=== PATIENT | female | born 1980 | race Caucasian/White ===

== ENCOUNTER 2016-12-22 18:04 | Emergency (ER) | payer BC ==
--- NOTE | 2016-12-22 18:31 | EDM.PDOC ---
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 Her last sexual intercourse was , 2 days ago. She said that initially it was small amounts and brown in color only when she wiped and today it looked more red and she thought she saw a few blood clots. She has used a light pad only for this bleeding and has not had any heavy bleeding. She has no lower abdominal cramping no nausea no vomiting no flank pain and no urinary complaints. She does not recall if she ever received Rogam with her prior pregnancies. The patient said she had a bedside ultrasound done by the nurse lumber sticker which documented a live IUP 4 weeks ago and she is approximately 10 weeks by that estimation. The patient has been eating and drinking normally. The patient states she is concerned because she did not have any heavy bleeding with her one miscarriage. Review of systems: As per history of present illness and below otherwise all systems reviewed and negative. Past medical history: As per history of present illness and as reviewed below otherwise noncontributory. Surgical history: As per history of present illness and as reviewed below otherwise noncontributory. Social history: No reported history of drug or alcohol abuse. Family history: As per history of present illness and as reviewed below otherwise noncontributory. Physical exam: General: Well-developed well-nourished female who is nontoxic and speaking in full sentences. Vital signs were noted by me. HEENT: Atraumatic, normocephalic, negative for conjunctival pallor or scleral icterus, mucous membranes moist, throat clear, neck supple, nontender, trachea midline. Lungs: Clear to auscultation, breath sounds equal bilaterally, chest nontender. Heart: S1S2, regular rate and rhythm no overt murmurs Abdomen: Soft, nondistended, nontender. Negative for masses or hepatosplenomegaly. Negative for costovertebral tenderness. Pelvis: Stable nontender. Genitourinary: There is a very scant amount of dark colored red mucus in the vault, the uterus is appropriate for age proximal leg tended 12 weeks, there is no adnexal tenderness or masses and the cervix is closed. Rectal: Deferred. Extremities: Atraumatic, negative for cords or calf pain. Neurovascular unremarkable. Neuro: Awake, alert, oriented. Cranial nerves II through XII unremarkable. Cerebellum unremarkable. Motor and sensory unremarkable throughout. Exam nonfocal. Diagnostics: CBC UA, urine culture if indicated, serum quantitative hCG, ABO Rh, pelvic ultrasound Therapeutics: 1900: Case was endorsed to Dr. Maya to follow-up on all the lab results as well as the pelvic ultrasound. He will disposition the patient pending those results Impression: Threatened first trimester Definitive disposition and diagnosis as appropriate pending reevaluation and review of above. - Related Data Allergies Allergy/AdvReac Type Severity Reaction Status Date / Time amoxicillin Allergy Hives Verified 12/22/16 18:21 clindamycin Allergy Hives Verified 12/22/16 18:21 Home Meds: Home Meds Levonorgestrel-Ethin Estradiol [Orsythia-28 Tablet] 1 tab PO DAILY 12/01/15 [ History] Past Medical History - Past Health History Medical/Surgical History: Denies Medical/Surgical History Other HEENT History: sore throats, tonsillolith, pharyngitis Cardiovascular History: Reports: None Respiratory History: Reports: None Gastrointestinal History: Reports: None Genitourinary History: Reports: None 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: Other OB/BYN History: 10 weeks gestation Musculoskeletal History: Reports: None Neurological History: Reports: Migraines Psychiatric History: Reports: None Endocrine/Metabolic History: Reports: None Hematologic History: Reports: None Immunologic History: Reports: None Oncologic (Cancer) History: Reports: None Dermatologic History: Reports: None - Past Surgical History Head Surgeries/Procedures: Reports: None GI Surgical History: Reports: Appendectomy Social & Family History - Family History Family Medical History: Noncontributory - Tobacco Use Smoking Status *Q: Never Smoker Second Hand Smoke Exposure: No - Caffeine Use Caffeine Use: Reports: None - Recreational Drug Use Recreational Drug Use: No Drug Use in Last 12 Months: No ED ROS GENERAL - Review of Systems Review Of Systems: ROS reveals no pertinent complaints other than HPI. ED EXAM, GENERAL - Physical Exam Exam: See Below (See dictation) Course - Vital Signs Last Recorded V/S: Last Vital Signs Temp 36.6 C 12/22/16 18:15 Pulse 86 12/22/16 18:15 Resp 18 12/22/16 18:15 BP 113/73 12/22/16 18:15 Pulse Ox - Orders/Labs/Meds Orders: Active Orders 24 hr Category Date Time Status OB 1st Tri Sgl 1st Gest [US] Stat Exams 12/22/16 18:26 Ordered Labs: Laboratory Tests 12/22/16 12/22/16 12/22/16 Range/Units 18:33 18:33 18:33 WBC 6.68 (4.0-11.0) K/uL RBC 4.00 L (4.30-5.90) M/uL Hgb 12.4 (12.0-16.0) g/dL Hct 37.4 (36.0-46.0) % MCV 93.5 (80.0-98.0) fL MCH 31.0 (27.0-32.0) pg MCHC 33.2 (31.0-37.0) g/dL RDW Std Deviation 46.7 (28.0-62.0) fl RDW Coeff of Carlos Manuel 14 (11.0-15.0) % Plt Count 274 (150-400) K/uL MPV 10.50 (7.40-12.00) fL Neut % (Auto) 51.7 (48.0-80.0) % Lymph % (Auto) 37.1 (16.0-40.0) % [place] % (Auto) 9.0 (0.0-15.0) % Eos % (Auto) 1.9 (0.0-7.0) % Baso % (Auto) 0.3 (0.0-1.5) % Neut # (Auto) 3.5 (1.4-5.7) K/uL Lymph # (Auto) 2.5 H (0.6-2.4) K/uL [place] # (Auto) 0.6 (0.0-0.8) K/uL Eos # (Auto) 0.1 (0.0-0.7) K/uL Baso # (Auto) 0.0 (0.0-0.1) K/uL Nucleated RBC % 0.0 /100WBC Nucleated RBCs # 0 K/uL HCG, Quant 6717.9 mIU/mL Urine Color Urine Appearance Urine pH (5.0-8.0) Ur Specific [place] (1.001-1.035) Urine Protein (NEGATIVE) mg/dL Urine Glucose (UA) (NEGATIVE) mg/dL Urine Ketones (NEGATIVE) mg/dL Urine Occult Blood (NEGATIVE) Urine Nitrite (NEGATIVE) Urine Bilirubin (NEGATIVE) Urine Urobilinogen (<2.0) EU/dL Ur Leukocyte Esterase (NEGATIVE) Urine RBC (0-2/HPF) Urine WBC (0-5/HPF) Ur Epithelial Cells (NONE-FEW) Urine Bacteria (NEGATIVE) Urine Mucus (NONE-MOD) Blood Type O POSITIVE 12/22/16 Range/Units 18:40 WBC (4.0-11.0) K/uL RBC (4.30-5.90) M/uL Hgb (12.0-16.0) g/dL Hct (36.0-46.0) % MCV (80.0-98.0) fL MCH (27.0-32.0) pg MCHC (31.0-37.0) g/dL RDW Std Deviation (28.0-62.0) fl RDW Coeff of Carlos Manuel (11.0-15.0) % Plt Count (150-400) K/uL MPV (7.40-12.00) fL Neut % (Auto) (48.0-80.0) % Lymph % (Auto) (16.0-40.0) % [place] % (Auto) (0.0-15.0) % Eos % (Auto) (0.0-7.0) % Baso % (Auto) (0.0-1.5) % Neut # (Auto) (1.4-5.7) K/uL Lymph # (Auto) (0.6-2.4) K/uL [place] # (Auto) (0.0-0.8) K/uL Eos # (Auto) (0.0-0.7) K/uL Baso # (Auto) (0.0-0.1) K/uL Nucleated RBC % /100WBC Nucleated RBCs # K/uL HCG, Quant mIU/mL Urine Color YELLOW Urine Appearance HAZY Urine pH 6.5 (5.0-8.0) Ur Specific [place] 1.020 (1.001-1.035) Urine Protein NEGATIVE (NEGATIVE) mg/dL Urine Glucose (UA) NEGATIVE (NEGATIVE) mg/dL Urine Ketones NEGATIVE (NEGATIVE) mg/dL Urine Occult Blood LARGE H (NEGATIVE) Urine Nitrite NEGATIVE (NEGATIVE) Urine Bilirubin NEGATIVE (NEGATIVE) Urine Urobilinogen 0.2 (<2.0) EU/dL Ur Leukocyte Esterase TRACE (NEGATIVE) Urine RBC 8-12 (0-2/HPF) Urine WBC 1-4 (0-5/HPF) Ur Epithelial Cells MODERATE (NONE-FEW) Urine Bacteria FEW (NEGATIVE) Urine Mucus LIGHT (NONE-MOD) Blood Type Departure - Departure Disposition: Home, Self-Care 01 Condition: Good Clinical Impression: Inevitable complete miscarriage without complication - Discharge Information Referrals: Alejandra Lucas CNM [Primary Care Provider] - Forms: ED Department Discharge Additional Instructions: The following information is given to patients seen in the emergency department who are being discharged to home. This information is to outline your options for follow-up care. We provide all patients seen in our emergency department with a follow-up referral. The need for follow-up, as well as the timing and circumstances, are variable depending upon the specifics of your emergency department visit. If you don't have a primary care physician on staff, we will provide you with a referral. We always advise you to contact your personal physician following an emergency department visit to inform them of the circumstance of the visit and for follow-up with them and/or the need for any referrals to a consulting specialist. The emergency department will also refer you to a specialist when appropriate. This referral assures that you have the opportunity for followup care with a specialist. All of these measure are taken in an effort to provide you with optimal care, which includes your followup. Under all circumstances we always encourage you to contact your private physician who remains a resource for coordinating your care. When calling for followup care, please make the office aware that this follow-up is from your recent emergency room visit. If for any reason you are refused follow-up, please contact the [facility] emergency department at and ask to speak to the emergency department charge nurse. [facility] [address] [place] [address] No heart activity was visualized on your ultrasound. You're having a miscarriage. Rest and drink plenty of fluids. Observe pelvic rest. Follow-up with Ms. Alejandra Lucas and Dr. cartagena on Saturday. Return immediately for uncontrolled bleeding or severe pain. He can take Motrin and Tylenol as needed for discomfort. Bleeding passing some tissue is normal and typical in the setting of miscarriage is only concerned if the bleeding becomes unstable or very large volume. <Rony Maya - Last Filed: 12/22/16 20:15> ED HPI GENERAL MEDICAL PROBLEM - History of Present Illness INITIAL COMMENTS - FREE TEXT/NARRATIVE: SUNG Elliott attending note Dr. Rony Julien by me in 1900 after full workup initiated by Dr. Laughlin. Patient stable. Quantitative hCG 6700 low compared with normal range for patient's gestational range. Hemoglobin appropriate Rh+. Urinalysis consistent with contamination and no evidence of infection. Ultrasound shows no heart activity when patient previously had a known intrauterine with heart activity. Case discussed with Dr. 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 Dr. Calvillo is aware the history and findings and recommends pelvic rest fluids and follow-up in the office on Saturday. Patient agrees with outpatient follow-up. She is comfortable and stable. His were to return immediately for new severe or worsening symptoms specifically for severe bleeding uncontrolled pain or feeling like she could faint. Departure - Departure Time of Disposition: 20:10
[2016-12-22 20:33] VITALS: BP 110/71
--- NOTE | 2016-12-24 12:08 | US ---
EXAM DATE: 12/22/16 PATIENT'S AGE: 36 Patient: JAYLENE POLANCO Facility: [place], [place] Site . Site : 1980 Study: US OB Pelvis [id number] 8:08:07 PM Ordering Physician: Truman Alvarez Final Report: INDICATION: Vaginal spotting with pelvic cramping TECHNIQUE: Ultrasound OB pelvis transvaginal. Real time pierre scale imaging of the pelvis was performed. COMPARISON: None FINDINGS: Sonographic imaging demonstrates a single intrauterine gestation. No heart motion is identified. The embryo`s crown rump length measurement of 4 mm corresponds to a gestational age of 6 weeks, 1 day. A small intrauterine fluid collection seen near the lower uterine segment. There is a normal appearing yolk sac. The placenta has not yet developed. The gestational sac has a normal appearance and there is no evidence of a perigestational hemorrhage. The amount of fluid within the sac appears appropriate for gestational age. The cervix is closed. The myometrium appears normal. The right ovary is unremarkable in appearance. The left ovary cannot be identified. No significant ascites noted. IMPRESSION: 1. No cardiac activity is identified, suspicious for a failed early . Follow up beta hCG and repeat ultrasound in 1 week recommended for confirmation. Dictated by Freeman Watts MD @ 12/22/2016 8:23:28 PM Dictated by: Freeman Watts MD @ 12/22/2016 20:23:34 (Electronic Signature) Report Signed by Proxy. CRISTOBAL
== END 2016-12-22 20:33 | disposition home or self-care (01) ==
LOC: MW.ED 18:04
DX: O03.9 Complete or unspecified spontaneous abortion without complication (principal); Z88.1 Allergy status to other antibiotic agents; Z90.49 Acquired absence of other specified parts of digestive tract
CPT/HCPCS: 36415; 76801; 76801-26; 81001; 84702; 85025; 86900; 86901; 99283; 99284-25

== ENCOUNTER 2016-12-23 14:24 | Emergency (ER) | payer BC ==
[2016-12-23] MEDS ORDERED: Sodium Chloride 0.9% 1,000 ML IV ONE ×2 (14:27→15:07)
--- NOTE | 2016-12-23 15:31 | EDM.PDOC ---
ED HPI GENERAL MEDICAL PROBLEM - General Chief Complaint: General Stated Complaint: DIZZINESS Time Seen by Provider: 12/23/16 14:25 Source of Information: Reports: Patient History Limitations: Reports: No Limitations - History of Present Illness INITIAL COMMENTS - FREE TEXT/NARRATIVE: History of present illness: [36 yr old female comes in with continued complaints of bleeding. Patient indicates she has saturated a pad an hour for the last 6 hours and she is concerned that she is bleeding too much. Patient indicates she is also getting dizzy and feeling like she is going to black out.] Review of systems: As per history of present illness and below otherwise all systems reviewed and negative. Past medical history: As per history of present illness and as reviewed below otherwise noncontributory. Surgical history: As per history of present illness and as reviewed below otherwise noncontributory. Social history: No reported history of drug or alcohol abuse. Family history: As per history of present illness and as reviewed below otherwise noncontributory. Physical exam: HEENT: Atraumatic, normocephalic, pupils reactive, negative for conjunctival pallor or scleral icterus, mucous membranes moist, throat clear, neck supple, nontender, trachea midline. Lungs: Clear to auscultation, breath sounds equal bilaterally, chest nontender. Heart: S1S2, regular, negative for clicks, rubs, or JVD. Abdomen: Soft, nondistended, nontender. Negative for masses or hepatosplenomegaly. Negative for costovertebral tenderness. Pelvis: Stable nontender. Genitourinary: Pelvic exam reveals a external os approximately 1 cm Rectal: Deferred. Extremities: Atraumatic, negative for cords or calf pain. Neurovascular unremarkable. Neuro: Awake, alert, oriented. Cranial nerves II through XII unremarkable. Cerebellum unremarkable. Motor and sensory unremarkable throughout. Exam nonfocal. Dr. Starr called and he is here in the ED to evaluate patient in person. Please see consult note per Dr. Starr. Diagnostics: [CBC, orthostatics] Therapeutics: [2 L of normal saline] Impression: [ demise/early missed AB] Plan: [Follow-up with Dr. Starr on Saturday as scheduled] Definitive disposition and diagnosis as appropriate pending reevaluation and review of above. Bilateral Lower Back Pain Score (Numeric/FACES): 6 - Related Data Allergies Allergy/AdvReac Type Severity Reaction Status Date / Time amoxicillin Allergy Hives Verified 12/23/16 14:37 clindamycin Allergy Hives Verified 12/23/16 14:37 Home Meds: Home Meds Levonorgestrel-Ethin Estradiol [Orsythia-28 Tablet] 1 tab PO DAILY 12/01/15 [ History] Past Medical History - Past Health History Medical/Surgical History: Denies Medical/Surgical History Other HEENT History: sore throats, tonsillolith, pharyngitis Cardiovascular History: Reports: None Respiratory History: Reports: None Gastrointestinal History: Reports: None Genitourinary History: Reports: None 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 OB/BYN History: 10 weeks gestation Musculoskeletal History: Reports: None Neurological History: Reports: Migraines Psychiatric History: Reports: None Endocrine/Metabolic History: Reports: None Hematologic History: Reports: None Immunologic History: Reports: None Oncologic (Cancer) History: Reports: None Dermatologic History: Reports: None - Past Surgical History Head Surgeries/Procedures: Reports: None GI Surgical History: Reports: Appendectomy Social & Family History - Family History Family Medical History: Noncontributory - Tobacco Use Smoking Status *Q: Never Smoker Second Hand Smoke Exposure: No - Caffeine Use Caffeine Use: Reports: None - Recreational Drug Use Recreational Drug Use: No Drug Use in Last 12 Months: No ED ROS GENERAL - Review of Systems Review Of Systems: See Below (History of present illness) ED EXAM, GENERAL - Physical Exam Exam: See Below (History of present illness) Course - Vital Signs Last Recorded V/S: Last Vital Signs Temp 36.6 C 12/23/16 14:32 Pulse 76 12/23/16 14:32 Resp 16 12/23/16 14:32 BP 100/65 12/23/16 14:32 Pulse Ox 100 12/23/16 14:32 Orthostatic Blood Pressure [ 83/51 Standing] Orthostatic Blood Pressure [ 84/55 Sitting] Orthostatic Blood Pressure [ 97/65 Side, Left] - Orders/Labs/Meds Orders: Active Orders 24 hr Category Date Time Status Orthostatic Vital Signs [RC] ASDIRECTED Care 12/23/16 14:27 Active Labs: Laboratory Tests 12/23/16 Range/Units 14:38 WBC 12.30 H (4.0-11.0) K/uL RBC 3.44 L (4.30-5.90) M/uL Hgb 10.8 L (12.0-16.0) g/dL Hct 31.9 L (36.0-46.0) % MCV 92.7 (80.0-98.0) fL MCH 31.4 (27.0-32.0) pg MCHC 33.9 (31.0-37.0) g/dL RDW Std Deviation 45.6 (28.0-62.0) fl RDW Coeff of Carlos Manuel 14 (11.0-15.0) % Plt Count 236 (150-400) K/uL MPV 10.20 (7.40-12.00) fL Neut % (Auto) 84.5 H (48.0-80.0) % Lymph % (Auto) 9.8 L (16.0-40.0) % [place] % (Auto) 5.4 (0.0-15.0) % Eos % (Auto) 0.2 (0.0-7.0) % Baso % (Auto) 0.1 (0.0-1.5) % Neut # (Auto) 10.4 H (1.4-5.7) K/uL Lymph # (Auto) 1.2 (0.6-2.4) K/uL [place] # (Auto) 0.7 (0.0-0.8) K/uL Eos # (Auto) 0.0 (0.0-0.7) K/uL Baso # (Auto) 0.0 (0.0-0.1) K/uL Nucleated RBC % 0.0 /100WBC Nucleated RBCs # 0 K/uL Meds: Medications Discontinued Medications Generic Name Dose Route Start Last Admin Trade Name Freq PRN Reason Stop Dose Admin Hydromorphone HCl 2 mg 12/23/16 15:54 Dilaudid IVPUSH 12/23/16 15:55 ONETIME ONE Sodium Chloride 1,000 mls @ 999 mls/hr 12/23/16 14:27 12/23/16 14:53 Normal Saline IV 12/23/16 15:27 999 mls/hr STAT ONE Administration Sodium Chloride 1,000 mls @ 999 mls/hr 12/23/16 15:07 12/23/16 15:37 Normal Saline IV 12/23/16 16:07 999 mls/hr .Bolus ONE Administration Ketorolac Tromethamine 30 mg 12/23/16 15:54 Toradol IVPUSH 12/23/16 15:55 ONETIME ONE Ondansetron HCl 4 mg 12/23/16 15:54 Zofran IVPUSH 12/23/16 15:55 ONETIME ONE Departure - Departure Time of Disposition: 17:11 Disposition: Home, Self-Care 01 Condition: Good Clinical Impression: Missed with demise before 20 completed weeks of gestation - Discharge Information Additional Instructions: The following information is given to patients seen in the emergency department who are being discharged to home. This information is to outline your options for follow-up care. We provide all patients seen in our emergency department with a follow-up referral. The need for follow-up, as well as the timing and circumstances, are variable depending upon the specifics of your emergency department visit. If you don't have a primary care physician on staff, we will provide you with a referral. We always advise you to contact your personal physician following an emergency department visit to inform them of the circumstance of the visit and for follow-up with them and/or the need for any referrals to a consulting specialist. The emergency department will also refer you to a specialist when appropriate. This referral assures that you have the opportunity for follow-up care with a specialist. All of these measure are taken in an effort to provide you with optimal care, which includes your follow-up. Under all circumstances we always encourage you to contact your private physician who remains a resource for coordinating your care. When calling for follow-up care, please make the office aware that this follow-up is from your recent emergency room visit. If for any reason you are refused follow-up, please contact the [facility] Emergency Department at and asked to speak to the emergency department charge nurse. Take medication as directed Follow up with the INTERMODAL CUSTOMER SERVICE as instructed Take it easy return to ED as needed as discussed - My Orders Last 24 Hours: My Active Orders 12/23/16 14:27 Orthostatic Vital Signs [RC] ASDIRECTED - Assessment/Plan Last 24 Hours: My Active Orders 12/23/16 14:27 Orthostatic Vital Signs [RC] ASDIRECTED
[2016-12-23] MEDS ORDERED: Ondansetron 4 MG/2 ML SDV IVPUSH ONE (15:54)
[2016-12-23] MEDS ORDERED: HYDROmorphone 2 MG/ML Syringe IVPUSH ONE (15:54)
[2016-12-23] MEDS ORDERED: Ketorolac 30 MG/ML SDV IVPUSH ONE (15:54)
[2016-12-23 16:12] VITALS: BP 107/67
[2016-12-23] MEDS ORDERED: Methylergonovine 0.2 MG/1 ML Amp IM ONE (16:45)
--- NOTE | 2016-12-23 23:50 | CONS ---
DATE OF CONSULTATION: DATE OF : 1980 PRIMARY CARE PHYSICIAN: None PCP ER Consultation This patient is 36-year-old patient. She is seen by Alejandra Lucas, our shipping & receiving lead, one visit last week and she was 7 to 8 weeks' and at that time, she had a viable ; however, the patient was seen in the emergency room yesterday. She had an ultrasound, which shows enviable . The patient was hemodynamically stable. Her vital sign was stable. She was sent home yesterday for observation to be seen in the clinic care Saturday or Saturday. However, the patient is presented again on Saturday on 12/23/2016 with excessive vaginal bleeding. Her hemoglobin dropped from 12 to 10, and she passed some clot with tissue, and she was still hemodynamically stable and I was consulted to evaluate the patient. Upon my arrival, the vital sign was stable. The patient was alert, conscious, and oriented. I explained to the patient that most likely she has miscarriage whether it is complete or incomplete, this is yet to be determined and I told the patient that I am going to examine her and possibly if the product of conception is still in her uterus and if there is endure amount of pain then I probably will remove this products of conception in the emergency room. The patient is duly consented for that and after pelvic examination, the external vulva is normal. The vagina is with some dark red blood clot. The cervical os is already dilated. A stabilizer was applied to the anterior lips of the cervix and using a ring forceps products of conception and blood clots removed from the uterus without any problem. After that using gauze and gentle curetting of the endometrial cavity is done and the remaining part of the product of conception is removed, the bleeding is stopped, and the patient is Rh positive, so there is no need for RhoGAM. I explained to the patient that most of the products of conception is already removed either passed on her own, and I removed the rest of them, but I warned her that she will have some more bleeding and spotting, and the patient does have an appointment scheduled in the clinic on Saturday. I advised her to keep it, and I told her if she starts bleeding excessively more than she can come back to the ER or she can come back to the clinic on Saturday. I explained this consult to the ER doctor, and I asked them to give her something for pain and to give the patient some Methergine subcu. DARREN / SAGE /[id number]
== END 2016-12-23 17:30 | disposition home or self-care (01) ==
LOC: MW.ED 14:24
DX: O02.1 Missed abortion (principal); Z88.1 Allergy status to other antibiotic agents; Z79.899 Other long term (current) drug therapy; Z90.49 Acquired absence of other specified parts of digestive tract
CPT/HCPCS: 36415; 85025; 96361; 96372; 96374; 99284; J1885; J2210; J7040; 88305; 99282

== ENCOUNTER 2021-05-09 14:49 | Emergency (ER) | payer BC ==
[2021-05-09] MEDS ORDERED: Ibuprofen 600 MG Tab PO ONE (15:22)
[2021-05-09] MEDS ORDERED: Acetaminophen 500 MG Tab PO ONE (15:22)
--- NOTE | 2021-05-09 15:24 | EDM.PDOC ---
ED HPI GENERAL MEDICAL PROBLEM - General Chief Complaint: General Stated Complaint: COVID Time Seen by Provider: 05/09/21 14:52 Source of Information: Reports: Patient History Limitations: Reports: No Limitations - History of Present Illness INITIAL COMMENTS - FREE TEXT/NARRATIVE: 40-year-old female presents with concerns for Covid infection. Patient states that she started feeling unwell roughly 7 days ago. She noticed body aches, headache. Yesterday she began to develop a cough. She denies shortness of breath or chest pain. She notes that she has lost her sense of taste and smell. She has not been vaccinated. She has been treating herself at home with DayQuil and NyQuil. - Related Data Allergies Allergy/AdvReac Type Severity Reaction Status Date / Time amoxicillin Allergy Hives Verified 05/09/21 15:06 clindamycin Allergy Hives Verified 05/09/21 15:06 Home Meds: Home Meds Cholecalciferol (Vitamin D3) [Vitamin D] 1 dose PO DAILY 05/09/21 [History] Past Medical History - Past Health History Medical/Surgical History: Denies Medical/Surgical History Other HEENT History: sore throats, tonsillolith, pharyngitis Cardiovascular History: Reports: None Respiratory History: Reports: None Gastrointestinal History: Reports: None Genitourinary History: Reports: None [employer] 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: 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 Musculoskeletal History: Reports: None Neurological History: Reports: Migraines Psychiatric History: Reports: None Endocrine/Metabolic History: Reports: None Hematologic History: Reports: None Immunologic History: Reports: None Oncologic (Cancer) History: Reports: None Dermatologic History: Reports: None - Past Surgical History Head Surgeries/Procedures: Reports: None GI Surgical History: Reports: Appendectomy Social & Family History - Family History Family Medical History: No Pertinent Family History - Tobacco Use Tobacco Use Status *Q: Never Tobacco User - Caffeine Use Caffeine Use: Reports: None - Recreational Drug Use Recreational Drug Use: No ED ROS GENERAL - Review of Systems Review Of Systems: Comprehensive ROS is negative, except as noted in HPI. ED EXAM, GENERAL - Physical Exam Exam: See Below Exam Limited By: No Limitations General Appearance: Alert, WD/WN, No Apparent Distress Ears: Hearing Grossly Normal Throat/Mouth: Normal Voice, No Airway Compromise Head: Atraumatic, Normocephalic Respiratory/Chest: No Respiratory Distress, Lungs Clear, Normal Breath Sounds, No Accessory Muscle Use Cardiovascular: Normal Peripheral Pulses, Tachycardia Extremities: Normal Inspection Neurological: Normal Cognition, Normal Gait Psychiatric: Normal Affect, Normal Mood Skin Exam: Warm, Dry, Intact, Normal Color Course - Vital Signs Last Recorded V/S: Last Vital Signs Temp 97.3 F 05/09/21 15:06 Pulse 101 H 05/09/21 15:06 Resp 17 05/09/21 15:06 BP 120/79 05/09/21 15:06 Pulse Ox 98 05/09/21 15:06 - Orders/Labs/Meds Labs: Laboratory Tests 05/09/21 Range/Units 15:11 Influenza Type A RNA NEGATIVE (NEGATIVE) Influenza Type B RNA NEGATIVE (NEGATIVE) SARS-CoV-2 RNA (JOY) POSITIVE H (NEGATIVE) Meds: Medications Discontinued Medications Generic Name Dose Route Start Last Admin Trade Name Freq PRN Reason Stop Dose Admin Acetaminophen 1,000 mg 05/09/21 15:22 05/09/21 15:30 Acetaminophen 500 Mg Tab PO 05/09/21 15:23 1,000 mg ONETIME ONE Administration Ibuprofen 600 mg 05/09/21 15:22 05/09/21 15:30 Ibuprofen 600 Mg Tab PO 05/09/21 15:23 600 mg ONETIME ONE Administration - Re-Assessments/Exams Free Text/Narrative Re-Assessment/Exam: 05/09/21 15:23 Symptoms suggestive of Covid. Will get Covid swab, chest x-ray. Will treat symptomatically with Tylenol and Motrin. 05/09/21 16:23 Covid test is positive. Patient is well-appearing with normal vital signs. Will discharge with instructions for [id number] Motrin and Tylenol use. Return precautions discussed. Departure - Departure Time of Disposition: 16:23 Disposition: Admitted As Inpatient 66 Condition: Good Clinical Impression: COVID-19 - Discharge Information Instructions: COVID-19: What to Do If You Are Sick- [facility] [place] (08/03/2020) Forms: ED Department Discharge Additional Instructions: Your Covid test is positive. You should isolate until cleared by the [facility]. If you are experiencing worsening shortness of breath or chest pain you should come back to the hospital for reassessment. Your chest x-ray does not show signs of Covid pneumonia. The following information is given to patients seen in the emergency department who are being discharged to home. This information is to outline your options for follow-up care. We provide all patients seen in our emergency department with a follow-up referral. The need for follow-up, as well as the timing and circumstances, are variable depending upon the specifics of your emergency department visit. If you don't have a primary care physician on staff, we will provide you with a referral. We always advise you to contact your personal physician following an emergency department visit to inform them of the circumstance of the visit and for follow-up with them and/or the need for any referrals to a consulting specialist. The emergency department will also refer you to a specialist when appropriate. This referral assures that you have the opportunity for follow-up care with a specialist. All of these measure are taken in an effort to provide you with optimal care, which includes your follow-up. Under all circumstances we always encourage you to contact your private physic ye who remains a resource for coordinating your care. When calling for follow- up care, please make the office aware that this follow-up is from your recent emergency room visit. If for any reason you are refused follow-up, please contact the [facility] at and asked to speak to the emergency department charge nurse. Please follow up with your primary care physician. If you do not have a primary care physician, see below: [facility] [address] [place] [id number] [facility] [address] [place] [address] [facility] [address] [place] [id number] Sepsis Event Note (ED) - Focused Exam Vital Signs: Vital Signs Temp Pulse Resp BP Pulse Ox 05/09/21 15:06 97.3 F 101 H 17 120/79 98
--- NOTE | 2021-05-09 15:42 | CR ---
INDICATION: Likely COVID TECHNIQUE: Chest 1 view. COMPARISON: None. FINDINGS: Cardiovascular and mediastinum: Heart size and vasculature are normal in caliber and appearance. Mediastinum is within normal limits. Lungs and pleural space: Lungs are clear. No sign of infiltrate or mass. No sign of pleural effusion. No pneumothorax. Bones and soft tissues: No significant findings. IMPRESSION: Unremarkable chest. Dictated by: Kashmir Heller MD @ 05/09/2021 15:40:17 (Electronically Signed)
[2021-05-09 16:03] LABS: CORONAVIRUS COVID-19 NAA POSITIVE (NEGATIVE); INFLUENZA A NAA NEGATIVE (NEGATIVE); INFLUENZA B NAA NEGATIVE (NEGATIVE)
[2021-05-09 16:41] VITALS: BP 100/70; PULSE 88
== END 2021-05-09 16:40 | disposition critical access hospital (66) ==
LOC: MW.ED 14:49
DX: O98.511 Other viral diseases complicating pregnancy, first trimester (principal); U07.1 COVID-19; Z88.0 Allergy status to penicillin; Z88.1 Allergy status to other antibiotic agents; Z3A.10 10 weeks gestation of pregnancy
CPT/HCPCS: 0240U; 71045; 99284; A9270

== ENCOUNTER 2025-04-28 16:56 | Emergency (ER) | payer BC ==
[2025-04-28 18:51] VITALS: BP 107/70; PULSE 75
== END 2025-04-28 18:49 | disposition home or self-care (01) ==
LOC: MW.ED 16:56
DX: S06.0XAA Concussion with loss of consciousness status unknown, initial encounter (principal); Z90.49 Acquired absence of other specified parts of digestive tract; Z79.899 Other long term (current) drug therapy; Z88.0 Allergy status to penicillin; Z88.1 Allergy status to other antibiotic agents; W00.0XXA Fall on same level due to ice and snow, initial encounter; W22.8XXA Striking against or struck by other objects, initial encounter
CPT/HCPCS: 70450; 72125; 99284; A9270; 99283